=== PATIENT | female | born 1945 | race Caucasian/White ===

== ENCOUNTER 2020-03-21 09:53 | Emergency (ER) | payer MEDICARE ==
[~2020-03-21] VITALS: Ht 167.6 cm; Wt 81.6 kg
[~2020-03-21 09:53] MED LIST: BACTRIM DS1 TAB PO; DITROPAN XL5 MG; GLU5 PO; HEP5I SC; LOP600 PO; LOV40I SC; METFORMIN HCL1000 MG PO; METOPIRONE250 MG; NATURE'S BLEN5000 IU PO; NEU300 PO; NEURONTIN300 MG PO; NEURONTIN600 MG PO
[2020-03-21 10:02] VITALS: BP 116/62; Ht 167.6 cm; Wt 81.6 kg
[2020-03-21 10:36] LABS: PLATELET COUNT 286 x10^3mcL (179-408)
[2020-03-21 11:11] LABS: CALCIUM 9.8 mg/dL (8.5-10.1); CARBON DIOXIDE 25.9 mmol/L (21-32); CHLORIDE SERUM 103 mmol/L (98-107); CREATININE SERUM 1.5 mg/dL (0.6-1.0); GLUCOSE SERUM 147 mg/dL (74-106); POTASSIUM SERUM 4.3 mmol/L (3.5-5.1); SODIUM SERUM 141 mmol/L (136-145)
[2020-03-21 11:17] LABS: ALBUMIN 3.4 g/dL (3.4-5.0); ALKALINE PHOSPHATASE 125 U/L (46-116); ALT/SGPT 14 U/L (14-59); AST/SGOT 19 U/L (15-37); BILIRUBIN TOTAL 0.36 mg/dL (0.20-1.00); HDL CHOLESTEROL 42 mg/dL (40-60); TOTAL PROTEIN, SERUM 7.5 g/dL (6.4-8.2); TRIGLYCERIDES 142 mg/dL (<150)
[2020-03-21 11:24] LABS: CHOLESTEROL 123 mg/dL (<200); CHOLESTEROL/HDL RATIO 2.9
== END 2020-03-21 15:06 | disposition home or self-care (01) ==
LOC: ED 09:53
PROVIDERS: Specialist
DX: S76.011A Strain of muscle, fascia and tendon of right hip, initial encounter (principal); S00.01XA Abrasion of scalp, initial encounter; I10 Essential (primary) hypertension; E11.40 Type 2 diabetes mellitus with diabetic neuropathy, unspecified; Z90.89 Acquired absence of other organs; Z90.49 Acquired absence of other specified parts of digestive tract; Z98.890 Other specified postprocedural states; Z88.0 Allergy status to penicillin; Z88.1 Allergy status to other antibiotic agents; W18.39XA Other fall on same level, initial encounter; Y93.89 Activity, other specified; Y92.89 Other specified places as the place of occurrence of the external cause; Y99.8 Other external cause status
CPT/HCPCS: 83880; J1885